=== PATIENT | female | born 2000 | race Two or more races ===

== ENCOUNTER → 2024-08-17 | Emergency (ER) | payer BC ==
[~2024-08-17] VITALS: Ht 157.5 cm; Wt 48.5 kg
== END | disposition home or self-care (01) ==
LOC: ER 18:55
DX: S61.511A Laceration without foreign body of right wrist, initial encounter (principal); W25.XXXA Contact with sharp glass, initial encounter; Y93.89 Activity, other specified; Y92.89 Other specified places as the place of occurrence of the external cause; Y99.8 Other external cause status